=== PATIENT | female | born 1970 | race Caucasian/White ===

== ENCOUNTER 2016-09-20 11:42 | Inpatient (IN) | payer OTHER ==
--- NOTE | ~2016-09-20 | CR72 ---
[facility] A Service of [facility] RADIOLOGY TEXT RESULTS PATIENT: DO BELL LOCATION: CEDOF : 70 UNIT #: [id number] AGE: [address]: GUILLERMINA PERKINS MD SEX: F ORDER DR: [id number] [facility] [address] [place], [place] [address] [id number] MR#: [id number] Acc #: [id number] NAME: DO BELL : 1970 SEX: F STUDY DATE/TIME: 09/20/2016 10:51 UNIT: CED ROOM: [id number] STUDY DESCRIPTION: CR Chest Single View Portable Attending Physician: Guillermina Perkins M.D. Ordering Physician: Clarke Lee M.D. Primary Care Physician: Primary Care Physician No MEDICAL IMAGING REPORT This report is preliminary unless electronic signature is present EXAM Portable chest. HISTORY 46-year-old woman complaining of two day history of shortness of air. History of hypertension. COMPARISON 05/05/2016 FINDINGS Portable upright chest demonstrates normal heart size. The mediastinal, hilar and aortic contours are normal. There is perihilar and basilar interstitial prominence increased from the prior study. IMPRESSION There is bilateral perihilar and basilar interstitial prominence right greater than left, new from 05/05/2016. This could represent interstitial pneumonitis or mild interstitial edema. It may be exaggerated by slightly low lung volumes. There is no pleural effusion or cardiomegaly. Dictated by... Hayley Mckenna M.D. THIS IS AN ELECTRONICALLY VERIFIED REPORT Hayley Mckenna M.D. at 09/20/2016 2:30 PM DEE DEE/telma TD: 09/20/2016 13:17 JOB #: [id number] MEDICAL IMAGING REPORT [facility] A Service of [facility] RADIOLOGY TEXT RESULTS PATIENT: DO BELL LOCATION: CEDOF : 70 UNIT #: [id number] AGE: [address]: GUILLERMINA PERKINS MD SEX: F ORDER DR: COPY
--- NOTE | ~2016-09-20 | DS ---
Unit #: [id number] #: [id number] Patient: DO HERRMANN [id number] [place], [place] [address] [id number] I MR#: [id number] NAME: DO HERRMANN ROOM: [facility] Age: 46 Sex: F Admission Date: 09/20/2016 : 1970 Discharge Date: 09/24/2016 Attending Physician: Jerri Aguirre M.D. Primary Care Physician: No Primary Care Physician DISCHARGE SUMMARY PRINCIPAL DIAGNOSES 1. Acute hypoxic respiratory failure, multifactorial and now resolved. 2. Acute exacerbation of asthma. 3. Sepsis secondary to influenza A and competed course of Tamiflu. 4. Iron deficiency anemia. 5. Musculoskeletal chest pain. 6. Gastroesophageal reflux disease. 7. Probable obstructive sleep apnea. 8. Morbid obesity. CONSULTANTS None. PROCEDURES Chest x-ray on September 20, 2016 with bilateral perihilar and basilar interstitial prominence left greater than right. CLINICAL HISTORY AND HOSPITAL COURSE Ms. Herrmann is a very nice 46-year-old female who presents to the emergency department with increasing cough and shortness of breath. Please refer to H and P for further details. Patient was mildly hypoxic upon presentation with an oxygen saturation of 89% on room air. She was also swabbed and found to be positive for influenza A. She also had fever and was tachycardic. Patient was started on Tamiflu, oxygen but unfortunately the following day, though fever resolved, she still remained with shortness of breath and oxygen saturations were low on room air, down to the mid 80s. She was also found to have wheezing and was placed on Solu-Medrol. Over the course of the next several days wheezing and hypoxia have resolved. Today ambulating oxygen saturations are in the mid 90s. Patient had an associated asthma exacerbation but this has resolved. I have discussed with her need to quit her tobacco use as well given she likely has a component of underlying COPD and patient expressed her understanding. Patient has otherwise remained clinically stable. She had a mild microcytic anemia and was found to be iron deficient. We are going to place her on iron supplementation as an outpatient. DISCHARGE CONDITION Stable. DISCHARHE STATUS Unit #: [id number] #: [id number] Patient: DO HERRMANN Discharge to home. DISCHARGE MEDICATIONS 1. Proventil inhaler one to two puffs q.4 h. p.r.n. for shortness of breath. 2. DuoNeb nebulizer treatments 3 mL q.6 h. p.r.n. for shortness of air. 3. Symbicort 160/4.5 mcg one puff b.i.d. 4. Prednisone 10 mg tablet four tablets for three days then three tablets for three days then two tablets for three days then one tablet for three days. 5. Ferrous gluconate 324 mg p.o. b.i.d. With one month prescription given. DISCHARGE INSTRUCTIONS 1. Patient has been instructed to follow a heart healthy low calorie diet. 2. She is to refrain from any further alcohol use and tobacco use. FOLLOWUP 1. The patient will follow up with her primary care physician in two to three weeks 2. I recommend outpatient pulmonary function testing when she is improved to further evaluate asthma versus COPD versus a mixed disorder. Can follow up on iron deficiency at that time as well. 3. Needs outpatient screening for a obstructive sleep apnea as well. Time spent on discharge 36 minutes. Dictated by... Jerri Aguirre M.D. CHARLEE/giselle TD: 09/26/2016 20:44 JOB #: [id number] DISCHARGE SUMMARY X Jerri Aguirre MD X DISCHARGE SUMMARY
--- NOTE | ~2016-09-20 | BMI ---
[facility] Nutrition Therapy DATE: 09/21/16 Patient: DO BELL Physician: DARNELL Address: [address] [place] [address] Room/Bed: [address] [place] [address], Zip: [place] [address] Admit Date: 09/20/16 Date of : [birth year] Height: 5 1 Weight: 266 120.8 HIGH BMI NOTE: DX: 46 Y.O. FEMALE ADMITTED FOR FLU, ASTHMA ANTHROPOMETRICS: 5'1", WT: 260# (118 KG), BMI: 49.1 DIET: HH INTERVENTION: 1. DIET RECOMMENDATIONS: 1. CONTINUE CURRENT DIET ORDER ABOVE TO PROMOTE GRADUAL WEIGHT LOSS TOWARDS HEALTHY BMI (19.0-25.0) OR +/-10%IBW RD WILL F/U PER PROTOCOL Respectfully, KEIRA TRUJILLO MS, RD, LD [facility] cc: client file
--- NOTE | ~2016-09-20 | EKG ---
PATIENT: DO BELL UNIT #: [id number] Ventricular Rate: 122 BPM Atrial Rate: 122 BPM P-R Interval: 130 ms QRS Duration: 62 ms Q-T Interval: 310 ms QTC Calculation(Bezet): 441 ms P Monette: 53 degrees Calculated R Monette: 72 degrees Calculated T Monette: 81 degrees Diagnosis Line: Sinus tachycardia Diagnosis Line: Low voltage QRS Diagnosis Line: Nonspecific T wave abnormality Diagnosis Line: Abnormal ECG Diagnosis Line: No previous ECGs available Diagnosis Line: Confirmed by FRANDY DOWLING MD ([id number]) on 09/20/2016 Diagnosis Line: 5:30:59 PM INTERPRETING MD: JOSEY AMBROSIO
--- NOTE | ~2016-09-20 | HP ---
Unit #: [id number] #: [id number] Patient: DO BELL [id number] [place], [place] [address] [id number] I MR#: [id number] NAME: DO BELL ROOM: [address] Age: 46 Sex: F Admission Date: 09/20/2016 : 1970 Attending Physician: Mikhail Perkins M.D. Primary Care Physician: No Primary Care Physician HISTORY AND PHYSICAL CHIEF COMPLAINT Shortness of breath. HISTORY OF PRESENT ILLNESS The patient is a 46-year-old female with a history of asthma and obesity brought to the emergency room complaining of the shortness of breath since last night at 6 p.m. The patient stated that patient has been having nausea and vomiting x1 last night and was gradually worsening to the point she couldn't breathe. The patient was found to have flu A positive with the hypoxia after 89% at room air. The patient is on oxygen and is sat'ing 94% to 96%. The patient also has a history of asthma and controlled with Ventolin. The patient currently is a smoker, half a pack of cigarettes daily, until a few days ago. The patient also complains of fever up to 102.2 and tachycardic at 137. Lactic acid is 1.7. The patient is being admitted for the above reasons. PAST MEDICAL HISTORY 1. History of obesity. 2. Asthma. 3. GERD. 4. Long history of alcohol use. PAST SURGICAL HISTORY Cholecystectomy. ALLERGIES No known drug allergies. HOME MEDICATIONS Albuterol and Symbicort. SOCIAL HISTORY She smokes a half pack per day. Drinks less than a pint of day. Denies any drug abuse. FAMILY HISTORY She lives with her daughter and is currently employed. REVIEW OF SYSTEMS Fourteen point review of systems was performed and only pertinent positive findings are described above, remaining are negative. Unit #: [id number] #: [id number] Patient: DO BELL PHYSICAL EXAMINATION GENERAL: The patient is lying on the bed, not in acute distress. VITALS: Temperature 102.2, pulse 137, respiratory rate 22, blood pressure 177/92, sat'ing 94% at 3 L. HEAD: Atraumatic, normocephalic. EENT: Pupils equal, round, reactive to light and accommodation. Extraocular movements are intact. Moist mucous membranes. NECK: Supple. No JVD. LUNGS: Decreased air entry at the bases. Positive for wheezing. HEART: Regular rate and rhythm. Tachycardic. ABDOMEN: Soft. Positive bowel sounds. Positive for obesity. EXTREMITIES: No cyanosis, no clubbing. NEUROLOGICAL: Alert, awake, oriented. No gross focal motor deficit. DIAGNOSTIC STUDIES LABORATORY DATA: Glucose 141, potassium 3.8, glucose 120, BUN 8, creatinine 0.6, sodium 141, potassium 3.8, chloride 109, bicarb 23, calcium 8.7, total protein 6.7, AST 17, ALT 12, alkaline phosphatase 64, amylase 12, lipase 14, lactic acid is 1.7. INR is 1. Troponin less than 0.05. WBC 11.5, hemoglobin 13.2, hematocrit 40.4, platelets 245, neutrophils 88%. Influenza A is positive. IMAGING: Chest x-ray shows mild interstitial edema/interstitial pneumonitis. CARDIOVASCULAR: EKG shows sinus tachycardia with low voltage. Nonspecific T wave abnormalities at a rate of 122 and QTC of 441. ASSESSMENT AND PLAN 1. Flu A positive with hypoxia and 89% at room air. 2. Asthma. 3. Interstitial pneumonitis. Plan to admit patient to observation with telemetry. Continue the Tamiflu 25 mg orally twice daily for five days and continue with Duo-Nebs p.r.n. Continue with oral antibiotics, Zithromax 500 mg daily for the interstitial pneumonitis. Continue with droplet isolation and check the CBC and BMP in the morning. Further recommendations will follow. Dictated by Angela Hall TD: 09/20/2016 12:48 JOB #: [id number] Unit #: [id number] #: [id number] Patient: DO BELL HISTORY AND PHYSICAL X X HISTORY AND PHYSICAL
[2016-09-20 11:27] LABS: BASOPHIL% 0.3 % (0-2.5); HEMATOCRIT 40.4 % (35.0-45.0); HEMOGLOBIN 13.2 gm/dL (12.0-16.0); LYMPHOCYTE# 0.8 X10e3 (1.0-3.5); LYMPHOCYTE% 7.2 % (17.0-45.0); MEAN CELL VOLUME 79.9 FL (83-96); MEAN CORPUSCULAR HGB CONC 32.6 g/dL (30-36); MEAN PLATELET VOLUME 7.2 FL (6.5-11.5); MONOCYTE# 0.5 X10e3 (0-1.0); MONOCYTE% 4.5 % (3.0-12.0); NEUTROPHIL# 10.1 X10e3 (1.5-7.1); PLATELET COUNT 245 X10e3 (140-420); RED BLOOD COUNT 5.06 X10e (3.90-5.30); RED CELL DISTRIBUTION WIDTH 16.5 % (11.0-15.5); WHITE BLOOD COUNT 11.5 X10e3 (4.0-10.5)
[2016-09-20 11:29] LABS: DIFF IND NO
[2016-09-20 11:32] LABS: POC - CKMB 1.1 ng/mL (0.0-7.9); POC - TROPONIN <0.05 ng/mL (<=0.05)
[2016-09-20 11:33] LABS: INFLUENZA A POS (NEG)
[2016-09-20 11:34] LABS: INFLUENZA B NEG (NEG)
[2016-09-20 11:49] LABS: PROTHROMBIN TIME (PATIENT) 10.4 SECONDS (9.6-11.5)
[2016-09-20 11:59] LABS: ALBUMIN SERUM 3.8 g/dL (3.5-5.0); ALKALINE PHOSPHATASE 64 U/L (32-92); ALT (SGPT) 12 U/L (10-40); AMYLASE 12 U/L (0-46); AST (SGOT) 17 U/L (10-42); BILIRUBIN,TOTAL 0.1 mg/dL (0.2-2.0); BLOOD UREA NITROGEN 8 mg/dL (9-23); BUN/CREATININE RATIO 13.33; CALCIUM SERUM 8.7 mg/dL (8.4-10.2); CARBON DIOXIDE 23 mmol/L (22-31); CHLORIDE 109 mmol/L (100-111); CREATININE SERUM 0.6 mg/dL (0.6-1.4); GLOM FILT RATE Estimated ABOVE60 mL/min (>60); GLUCOSE FASTING 120 mg/dL (70-110); LIPASE 14 U/L (22-51); POTASSIUM 3.8 mmol/L (3.5-5.1); PROTEIN TOTAL SERUM 6.7 g/dL (6.0-8.3); SODIUM 141 mmol/L (135-145)
[2016-09-20 12:01] LABS: BILIRUBIN, DIRECT <0.1 mg/dL (0.0-0.2)
[2016-09-20 13:30] LABS: POC - CKMB 1.4 ng/mL (0.0-7.9); POC - TROPONIN <0.05 ng/mL (<=0.05)
[2016-09-20] MEDS ORDERED: ALB/IPRATROPIUM/1 E1 INH (13:51)
[2016-09-20] MEDS ORDERED: SYMBICORT INH (13:51)
[2016-09-20] MEDS ORDERED: ALBUTEROL17 GM (13:51)
[2016-09-20] MEDS ORDERED: ALBUTEROL17 GM INH (13:54)
[2016-09-21 08:26] LABS: BASOPHIL% 0.4 % (0-2.5); HEMATOCRIT 40.7 % (35.0-45.0); LYMPHOCYTE# 1.8 X10e3 (1.0-3.5); LYMPHOCYTE% 19.2 % (17.0-45.0); MEAN CELL VOLUME 80.3 FL (83-96); MEAN CORPUSCULAR HEMOGLOBIN 25.7 PG (28-34); MONOCYTE% 10.8 % (3.0-12.0); NEUTROPHIL# 6.5 X10e3 (1.5-7.1); NEUTROPHIL% 69.6 % (40-75); PLATELET COUNT 236 X10e3 (140-420); RED BLOOD COUNT 5.07 X10e (3.90-5.30); RED CELL DISTRIBUTION WIDTH 16.8 % (11.0-15.5); WHITE BLOOD COUNT 9.4 X10e3 (4.0-10.5)
[2016-09-21 08:29] LABS: DIFF IND NO
[2016-09-21 09:34] LABS: BLOOD UREA NITROGEN 10 mg/dL (9-23); CALCIUM SERUM 8.5 mg/dL (8.4-10.2); CARBON DIOXIDE 26 mmol/L (22-31); CHLORIDE 107 mmol/L (100-111); CREATININE SERUM 0.5 mg/dL (0.6-1.4); GLOM FILT RATE Estimated ABOVE60 mL/min (>60); GLUCOSE FASTING 97 mg/dL (70-110); SODIUM 140 mmol/L (135-145)
[2016-09-21 09:48] LABS: IRON SERUM 13 ug/dL (28-170); TOTAL IRON BINDING CAPACITY 284 ug/dL (269-535); TRANSFERRIN 203 mg/dL (192-382); TRANSFERRIN SATURATION 5 % (20-50)
[2016-09-21 12:00] LABS: ARTERIAL BLD GAS O2 SATURATION 94.3 % (90.0-100.0); ARTERIAL BLOOD GAS CARBOXY HB 0.4 %sat (0.0-9.0); ARTERIAL BLOOD GAS HCO3 28.6 mmol/L; ARTERIAL BLOOD GAS MET HB 0.5 %sat (0.0-2.0); ARTERIAL BLOOD GAS pH 7.412 (7.350-7.450)
[2016-09-21 12:01] LABS: ARTERIAL BLOOD GAS ALLEN TEST NORMAL; ARTERIAL BLOOD GAS ART SITE RIGHT RADIAL; ARTERIAL BLOOD GAS DELIVERY NASAL CANNULA; ARTERIAL BLOOD GAS LITER FLOW 3.5; ARTERIAL DRAW? YES
[2016-09-24] MEDS ORDERED: PREDNISONE10 MG PO (12:01)
[2016-09-24] MEDS ORDERED: FERROUS GLUCON324 MG PO (12:02)
== END 2016-09-24 17:52 | disposition home or self-care (01) | DRG 871 ==
LOC: CED 11:42 → CEDOF 12:23 → C5C 17:34 → C2A 09-21 20:35
PROVIDERS: Emergency Medicine; Internal Medicine
DX: A41.9 Sepsis, unspecified organism (principal); J96.01 Acute respiratory failure with hypoxia; Z68.42 Body mass index [BMI] 45.0-49.9, adult; J45.901 Unspecified asthma with (acute) exacerbation; J09.X2 Influenza due to identified novel influenza A virus with other respiratory manifestations; E66.01 Morbid (severe) obesity due to excess calories; D50.9 Iron deficiency anemia, unspecified; K21.9 Gastro-esophageal reflux disease without esophagitis; G47.33 Obstructive sleep apnea (adult) (pediatric); F17.200 Nicotine dependence, unspecified, uncomplicated
CPT/HCPCS: 36415; 36600; 71010; 80048; 80076; 82150; 82553; 82803; 83540; 83550; 83605; 83690; 84484; 85025; 85610; 85730; 87040; 87070; 87205; 87804; 93005; 94640; 94664; 94760; 96361; 96374; 99291; J1650; J2270; J2920